=== PATIENT | female | born 1935 | race Caucasian/White ===

== ENCOUNTER → 2017-04-28 | Outpatient (CLI) | payer MEDICARE, OTHER ==
[~2017-04-28] MED LIST: ACTOS 15MG TAB15 MG PO; ACULAR OP; AMLODIPINE10 MG PO; AMLOPIDINE PO; ASCRIPTIN PO; ASCRIPTIN325 MG PO; ASPIRIN 32325 MG/TAB PO; ASPIRIN 81M81 MG/TA2 PO; BENICAR HCT 12.1 TA1 PO; CALCIUM600 M2 PO; CALTRATE-600 W600 MG PO; CARDI-OMEGA1000 MG PO; CENTRUM SILVER1 TA1 PO; ENABLEX 7.5MG7.5 MG PO; FISH OIL CONC1000 MG PO; FISH OIL1000 MG PO; FLOXIN OT; GLUCOPHAGE500 MG/TAB PO; GLUCOVANCE 5 MG1 TAB PO; GLYBURIDE AND M1 TA2 PO; K-DUR 10 MEQ T10 MEQ PO; KLOR-CON 1010 MEQ PO; LASIX 20MG TABL20 MG PO; LEVEMIR FLEXPEN SQ; LISINOPRIL5 MG PO; LOPID 600M600 MG/TAB PO; LOVASTATIN20 MG PO; MACROBID 1100 MG/CAP PO; MEVACOR 20M20 MG/TAB PO; MULTIPLE VITAMI1 CAP PO; MVI; NITROQUICK0.4 MG SL; NITROSTAT0.4 MG SL; ONGLYZA2.5 MG PO; PLAVIX 75MG TAB75 MG PO; POTASSIUM CHLO10 ME2 PO; PRED FORTE 1 ML1 ML OP; TEARS NATURALE15 M1; TOPROL XL 50MG50 MG PO; TOPROL XL50 MG PO; VESICARE10 MG PO; ZOFRAN ODT8 MG PO; [UNRECOGNIZED DRUG - OTHER] OT; glucovance PO
== END ==
LOC: COL.CARD 04-23 14:30
DX: I10 Essential (primary) hypertension (principal)

== ENCOUNTER 2017-08-07 07:20 | Emergency (ER) | payer MEDICARE, OTHER ==
[~2017-08-07] VITALS: Ht 157.5 cm; Wt 81.8 kg
[2017-08-07 07:23] VITALS: TEMP 98.3
[2017-08-07 07:57] LABS: VENOUS BLOOD GAS BE 0.2 (-4-4); VENOUS BLOOD GAS SAO2 66.4 % (60-80); VENOUS BLOOD GAS SITE VENIPUNCTURE
[2017-08-07] MEDS ORDERED: COREG 25MG25 MG/TAB PO (08:08)
[2017-08-07] MEDS ORDERED: HYZAAR 12.5 MG-1 TAB PO (08:11)
[2017-08-07] MEDS ORDERED: VESICARE10 MG PO (08:11)
[2017-08-07] MEDS ORDERED: HUMALOGKP50/50 SQ (08:14)
[2017-08-07 08:18] LABS: BASO # 0.1 (0.0-0.2); BASO % 0.6 % (0.0-2.0); EOS # 0.2 (0.0-0.7); EOS % 1.5 % (0-4.0); GRAN # 8.6 (1.4-6.5); GRAN % 76.3 % (42.2-75.2); LYMPH # 1.6 (1.2-3.4); LYMPH % 14.1 % (20.0-51.0); MEAN CELL VOLUME 90 fl (80.0-100.0); MEAN CORPUSCULAR HGB CONC 32 g/dl (33.0-37.0); MEAN PLATELET VOLUME 11.8 fl (7.4-10.4); MONO # 0.8 (0.1-0.6); MONO % 7.1 % (1.7-9.3); PLATELET COUNT 314 K/mm3 (130-400); RED BLOOD COUNT 3.82 M/mm3 (4.10-5.30); REDCELL DISTRIBUTION WIDTH-CV 14.3 % (11.5-14.5); WHITE BLOOD COUNT 11.3 K/mm3 (4.8-10.8)
[2017-08-07 08:22] LABS: ADJUSTED CALCIUM 9.5 mg/dL (8.4-10.2); ALANINE AMINOTRANSFERASE 29 U/L (9-52); ALBUMIN 3.9 gm/dL (3.5-5.0); ALKALINE PHOSPHATASE 121 U/L (50-136); ANION GAP 13 mmol/L (7-16); BILIRUBIN,TOTAL 0.5 mg/dL (0.0-1.0); BLOOD UREA NITROGEN 33 mg/dL (7-17); CALCIUM 9.4 mg/dL (8.4-10.2); CARBON DIOXIDE 24 mmol/L (22-30); CHLORIDE 101 mmol/L (98-107); CREATININE, serum 1.82 mg/dL (0.52-1.25); GLUCOSE 388 mg/dL (74-106); LIPASE 99 U/L (23-300); POTASSIUM 4.1 mmol/L (3.4-5.0); SODIUM 137 mmol/L (137-145); TOTAL PROTEIN 6.9 gm/dL (6.4-8.2)
[2017-08-07 08:23] LABS: HEMATOCRIT 34.3 % (37.0-47.0); HEMOGLOBIN 10.9 g/dl (12.5-16.0); MEAN CORPUSCULAR HEMOGLOBIN 29 pg (27.0-31.0)
[2017-08-07 09:44] LABS: PH 5 (5-8); URINE APPEARANCE Cloudy; URINE BACTERIA Rare /hpf; URINE BILIRUBIN Negative (NEGATIVE); URINE BLOOD Negative (NEGATIVE); URINE COLOR Yellow; URINE GLUCOSE 3+ (NEGATIVE); URINE KETONE Negative (NEGATIVE); URINE UROBILINOGEN Negative (NEGATIVE)
[2017-08-07 09:48] LABS: URINE WBC >50 /hpf
[2017-08-07 11:03] VITALS: BP 139/56; PULSE 60
== END 2017-08-07 11:03 | disposition home or self-care (01) ==
LOC: COL.ER 07:20
PROVIDERS: Emergency Medicine
DX: E11.65 Type 2 diabetes mellitus with hyperglycemia (principal); I10 Essential (primary) hypertension; E78.5 Hyperlipidemia, unspecified; Z79.4 Long term (current) use of insulin; Z79.82 Long term (current) use of aspirin
CPT/HCPCS: J1815; J7030